=== PATIENT | female | born 1975 | race Caucasian/White ===

== ENCOUNTER 2018-02-22 08:24 | Emergency (ER) | payer OTHER ==
[2018-02-22 08:34] VITALS: BMI 31.1
[2018-02-22] MEDS ORDERED: Morphine 4 mg/ml ISec IVP STA (08:56)
[2018-02-22] MEDS ORDERED: Morphine 4 mg/ml ISec ONE (09:02)
--- NOTE | 2018-02-22 09:08 | ED PDOC ---
Arrival/HPI - History of Present Illness Time/Duration: 1-3 hours Symptom Onset: Sudden Symptom Course: Unchanged Quality: Other (Sharp) Activities at Onset: Rest - General Chief Complaint: Abdominal Pain Time Seen by Provider: 02/22/18 08:43 - History of Present Illness Narrative History of Present Illness (Text): 02/22/18 09:03 PGY-[address] Dow Patient is a 43 year old female with no known PMHx who presents with sharp L- sided flank pain. Pt states around 6:30 this morning she began to experience pain in her flank that quickly progressed with some radiation to the lower back. Pt denies dysuria, changes in frequency, urgency, or hematuria but does note that her urine this morning was a darker yellow than usual. She denies any history of kidney stones. Pt denies fevers or chills. Pt denies abdominal pain , diarrhea, or any intolerance to food though she did vomit in the ED this morning. Pt states she does not take any medications. (Olvin Mccallum) Past Medical History - Provider Review Nursing Documentation Reviewed: Yes - Psychiatric Hx Substance Use: No - Surgical History Hx Gastric Bypass Surgery: Yes (2009) Hx Hysterectomy: Yes - Anesthesia Hx Anesthesia: Yes Family/Social History - Physician Review Nursing Documentation Reviewed: Yes Family/Social History: Unknown Family HX Smoking Status: Never Smoked Hx Alcohol Use: No Hx Substance Use: No Allergies/Home Meds Allergies/Adverse Reactions: Allergies No Known Allergies Allergy (Verified 02/22/18 08:35) Review of Systems - Review of Systems Constitutional: Normal. absent: Fatigue, Fevers Eyes: Normal. absent: Vision Changes, Photophobia ENT: Normal. absent: Sore Throat, Rhinorrhea Respiratory: Normal. absent: SOB, Cough, Sputum, Wheezing Cardiovascular: Normal. absent: Chest Pain, Palpitations Gastrointestinal: Vomiting. absent: Abdominal Pain, Stool Changes, Constipation , Diarrhea, Nausea, Appetite Changes, Hematochezia, Hematemesis, Food Intolerance Genitourinary Female: Normal, Other (+L-sided flank pain). absent: Dysuria, Frequency, Hematuria, Urine Output Changes, Vaginal Discharge Musculoskeletal: Normal. absent: Arthralgias, Back Pain Skin: Normal. absent: Rash, Pruritis, Laceration Neurological: Normal. absent: Headache, Dizziness Endocrine: Normal Physical Exam Vital Signs Reviewed: Yes Temperature: Afebrile Blood Pressure: Normal Pulse: Regular Respiratory Rate: Normal Appearance: Positive for: Non-Toxic, Uncomfortable Pain Distress: Moderate Mental Status: Positive for: Alert and Oriented X 3 - Systems Exam Head: Present: Atraumatic, Normocephalic Pupils: Present: PERRL Extroacular Muscles: Present: EOMI Conjunctiva: Present: Normal. No: Injected, Icteric Ears: Present: Normal Mouth: Present: Moist Mucous Membranes Pharnyx: Present: Normal. No: ERYTHEMA, EXUDATE Nose (External): Present: Atraumatic. No: Abrasion, Contusion Neck: Present: Normal Range of Motion. No: JVD Respiratory/Chest: Present: Clear to Auscultation, Good Air Exchange. No: Respiratory Distress, Accessory Muscle Use, Wheezes Cardiovascular: Present: Regular Rate and Rhythm, Normal S1, S2. No: Murmurs Abdomen: Present: Tenderness, Normal Bowel Sounds. No: Distention, Peritoneal Signs, Rebound, Hernias Back: No: CVA Tenderness, Midline Tenderness Upper Extremity: Present: Normal Inspection, Normal ROM, NORMAL PULSES. No: Cyanosis, Edema Lower Extremity: Present: Normal Inspection, NORMAL PULSES. No: Edema, Cyanosis Neurological: Present: GCS=15, CN II-XII Intact, Speech Normal Skin: Present: Warm, Dry, Normal Color. No: Rashes Psychiatric: Present: Alert, Oriented x 3 Vital Signs Temp Pulse Resp BP Pulse Ox 02/22/18 12:15 98.0 F 65 18 124/74 100 02/22/18 11:04 68 18 126/78 100 02/22/18 10:07 65 18 128/85 100 02/22/18 08:40 97.8 F 63 16 131/91 H 100 02/22/18 08:39 97.8 F 63 16 131/91 H 100 Medical Decision Making - RAD Interpretation Laundry Room Attendant: Radiologist ED Course and Treatment: Patient Seen With Resident: In agreement with resident note which contains more details about the patient. Patient was seen and evaluated with resident. Came up with plan and treatment together. (Derrick Avitia) 02/22/18 10:43 Flank pain - Possible nephrolithiasis: * CBC w dif, CMP, UA * CT abd/pelvis without contrast * Morphine 4mg IV stat, toradol 15mg IV stat, Zofran 4mg IV stat 08/20/18 12:12 CTA - evidence of passed 3mm L ureteral stone (Olvin Mccallum) - Lab Interpretations Lab Results: 02/22/18 08:55 02/22/18 08:55 Lab Results 02/22/18 08:55: Sodium 144, Potassium 3.9, Chloride 103, Carbon Dioxide 29, Anion Gap 16, BUN 13, Creatinine 0.9, Est GFR ( Amer) > 60, Est GFR (Non- Af Amer) > 60, Random Glucose 114 H, Calcium 9.3, Total Bilirubin 1.3, AST 31, ALT 17, Alkaline Phosphatase 59, Total Protein 8.5 H, Albumin 4.6, Globulin 3.9 , Albumin/Globulin Ratio 1.2 02/22/18 08:55: Urine Color Yellow, Urine Appearance Clear, Urine pH 6.0, Ur Specific [place] 1.020, Urine Protein Trace H, Urine Glucose (UA) Negative, Urine Ketones Negative, Urine Blood Negative, Urine Nitrate Negative, Urine Bilirubin Negative, Urine Urobilinogen 1.0 H, Ur Leukocyte Esterase Negative, Urine RBC 0 - 2, Urine WBC 0 - 2, Ur Epithelial Cells 4 - 5, Urine Bacteria Mod 02/22/18 08:55: WBC 5.7, RBC 6.56 H, Hgb 11.1 L, Hct 34.6 L, MCV 52.7 L, MCH 16.9 L, MCHC 32.1, RDW 18.5 H, Plt Count 202, Gran % 38.6 L, Lymph % (Auto) 51.2 H, [place] % (Auto) 8.4 H, Eos % (Auto) 1.4 L, Baso % (Auto) 0.4, Gran # 2.20 , Lymph # (Auto) 2.9, [place] # (Auto) 0.5, Eos # (Auto) 0.1, Baso # (Auto) 0.02 - RAD Interpretation Narrative RAD Interpretations (Text): 02/22/18 12:09 Findings consistent with recent passage of a 3mm L ureteral stone, with assymetric enlargement and edema in the L kidney, perinephric fat stranding, mild hydronephrosis, and diffuse dilatation of the L ureter (Olvin Mccallum) Radiology Orders: 02/22/18 10:02 ABD & PELVIS W/O PO OR IV CONT [CT] Stat - Medication Orders Current Medication Orders: Discontinued Medications Ketorolac Tromethamine (Toradol) 15 mg IVP STAT STA Stop: 02/22/18 09:17 Last Admin: 02/22/18 09:22 Dose: Morphine Sulfate (Morphine) 4 mg IVP STAT STA Stop: 02/22/18 08:57 Last Admin: 02/22/18 08:56 Dose: 4 mg [facility] Pain Assessment Document 02/22/18 08:56 SHON (Rec: 02/22/18 09:20 SHON [id number]) Pain Reassessment Is this a pain reassessment? No Sleep Is patient sleeping during reassessment? No Presence of Pain Presence of Pain Yes Pain Scale Used Pain Scale Used Numeric Description Description Constant Intensity of Pain at present 10 IVP Administration Document 02/22/18 08:56 SHON (Rec: 02/22/18 09:20 SHON [id number]) Charges for Administration # of IVP Administrations 1 Re-Assess: [facility] Pain Assessment Document 02/22/18 09:56 SHON (Rec: 02/22/18 11:25 SHON [id number]) Pain Reassessment Is this a pain reassessment? Yes Sleep Is patient sleeping during reassessment? No Presence of Pain Presence of Pain Yes Pain Scale Used Pain Scale Used Numeric Description Description Intermittent Intensity of Pain at present 3 Ondansetron HCl (Zofran Inj) 4 mg IVP STAT STA Stop: 02/22/18 09:09 Last Admin: 02/22/18 09:19 Dose: 4 mg IVP Administration Document 02/22/18 09:19 SHON (Rec: 02/22/18 09:20 IVÁN [id number]) Charges for Administration # of IVP Administrations 1 Disposition/Present on Arrival - Present on Arrival Any Indicators Present on Arrival: No History of DVT/PE: No History of Uncontrolled Diabetes: No Urinary Catheter: No History of Decub. Ulcer: No History Surgical Site Infection Following: None - Disposition Have Diagnosis and Disposition been Completed?: Yes Disposition Time: 12:12 - Disposition Diagnosis: Left nephrolithiasis Disposition: HOME/ ROUTINE Patient Problems: Current Active Problems Problem Status Onset Left nephrolithiasis Acute Condition: GOOD Discharge Instructions (ExitCare): Kidney Stones (DC) Prescriptions: Ibuprofen [Motrin] 600 mg PO Q6 6 Days #24 tab Forms: [employer] ([place])
[2018-02-22 09:21] LABS: BASO # 0.02 K/mm3 (0.0-2.0); BASO % 0.4 % (0.0-3.0); EOS # 0.1 (0.0-0.7); EOS % 1.4 % (1.5-5.0); GRAN % 38.6 % (50.0-68.0); HEMOGLOBIN 11.1 g/dL (12.0-16.0); LYMPH # 2.9 (1.2-3.4); LYMPH % 51.2 % (22.0-35.0); MEAN CELL VOLUME 52.7 fl (80.0-105.0); MEAN CORPUSCULAR HEMOGLOBIN 16.9 pg (25.0-35.0); MEAN CORPUSCULAR HGB CONC 32.1 g/dl (31.0-37.0); MONO # 0.5 (0.1-0.6); MONO % 8.4 % (1.0-6.0); PLATELET COUNT 202 10^3/uL (120.0-450.0); RBC 6.56 10^6/uL (3.5-6.1); RED CELL DISTRIBUTION WIDTH 18.5 % (11.5-14.5); WHITE BLOOD COUNT 5.7 10^3/ul (4.5-11.0)
[2018-02-22 09:22] LABS: URINE BILIRUBIN NEGATIVE (NEGATIVE); URINE BLOOD NEGATIVE (NEGATIVE); URINE GLUCOSE (UA) NEGATIVE (NEGATIVE); URINE LEUKOCYTE ESTERASE NEGATIVE Leu/uL (NEGATIVE); URINE PROTEIN TRACE mg/dL (<30 mg/dL)
[2018-02-22 09:25] LABS: ALB/GLOB RATIO 1.2 (1.1-1.8); ALBUMIN 4.6 g/dL (3.0-4.8); ALT/SGPT 17 U/L (7-56); AST/SGOT 31 U/L (14-36); BLOOD UREA NITROGEN 13 mg/dL (7-21); CALCIUM 9.3 mg/dL (8.4-10.5); GFR AFRICAN-AMERICAN > 60; GFR NON-AFRICAN AMERICAN > 60; URINE APPEARANCE CLEAR (CLEAR); URINE COLOR YELLOW (YELLOW)
[2018-02-22 09:31] LABS: URINE BACTERIA MOD (NEG); URINE RBC 0 - 2 /hpf (0-2); URINE WBC 0 - 2 /hpf (0-6)
[2018-02-22 10:07] VITALS: RESP 18
--- NOTE | 2018-02-22 11:55 | CT ---
Date of service: 02/22/2018 PROCEDURE: CT Abdomen and Pelvis without intravenous contrast HISTORY: r/o kidney stones COMPARISON: None. TECHNIQUE: CT scan of the abdomen and pelvis was performed without administration of intravenous contrast. Oral contrast was not administered. Coronal and sagittal reformatted images were obtained. . Radiation dose: Total exam DLP = 647.26 mGy-cm. This CT exam was performed using one or more of the following dose reduction techniques: Automated exposure control, adjustment of the mA and/or kV according to patient size, and/or use of iterative reconstruction technique. FINDINGS: LOWER THORAX: The visualized lungs are clear. LIVER: Normal in size. No intrahepatic ductal dilatation. GALLBLADDER AND BILE DUCTS: There are multiple small calcified gallstones. No biliary dilatation PANCREAS: Normal in size. No ductal dilatation. SPLEEN: There is borderline splenomegaly. ADRENALS: Normal in size. No discrete nodule. KIDNEYS AND URETERS: The right kidney is normal in size without nephrolithiasis. No hydronephrosis. There is asymmetric enlargement of the left kidney with perinephric fat stranding, mild left hydronephrosis and diffuse dilatation of the left ureteral. There is a 3 mm stone in the urinary bladder. VASCULATURE: No aortic aneurysm. BOWEL: Status post gastric sleeve surgery. The small bowel loops are normal in caliber. The colon is normal in size. No bowel dilatation or wall thickening. No bowel obstruction. APPENDIX: Normal appendix. PERITONEUM: No free fluid. No free air. LYMPH NODES: No enlarged lymph nodes. BLADDER: Partially distended. 3 mm stone in the urinary bladder. REPRODUCTIVE: Surgically absent BONES: No acute fracture. 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 Severe degenerative disc disease at L4-5 with disc desiccation and vacuum OTHER FINDINGS: None. IMPRESSION: Findings are consistent with recent passage of a 3 mm left ureteral stone with asymmetric enlargement and edema in the left kidney, perinephric fat stranding, mild left hydronephrosis and diffuse dilatation of the left ureter.
[2018-02-22 12:31] VITALS: TEMP 98
[2018-02-22 12:52] VITALS: BP 120/70; PULSE 70; O2SAT 99
== END 2018-02-22 12:52 | disposition home or self-care (01) ==
LOC: ED 08:24
DX: N20.0 Calculus of kidney (principal)
CPT/HCPCS: 74176; 80053; 81001; 85025; 96374; 96375; 99285; J1885; J2270; J2405